=== PATIENT | male | born 1985 | race American Indian/Alaskan Native ===

== ENCOUNTER 2017-07-29 11:08 | Emergency (ER) | payer SELFPAY ==
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
[2017-07-29] MEDS ORDERED: CATAPRES PO ONE (13:26)
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
[2017-07-29 14:51] VITALS: BP 168/115
== END 2017-07-29 16:00 | disposition home or self-care (01) ==
LOC: ED 11:08
DX: S02.2XXA Fracture of nasal bones, initial encounter for closed fracture (principal); I10 Essential (primary) hypertension; F17.200 Nicotine dependence, unspecified, uncomplicated; Y04.8XXA Assault by other bodily force, initial encounter; Y93.89 Activity, other specified; Y92.89 Other specified places as the place of occurrence of the external cause; Y99.8 Other external cause status
CPT/HCPCS: 70450; 70486; 72125; 99283

== ENCOUNTER 2017-10-09 14:00 | Emergency (ER) | payer SELFPAY ==
[2017-10-09 14:09] VITALS: BP 200/125
[2017-10-09] MEDS ORDERED: CATAPRES ONE (14:12)
[2017-10-09] MEDS ORDERED: CATAPRES PO ONE (14:13)
== END 2017-10-09 17:40 | disposition left against medical advice (07) ==
LOC: ED 14:00
DX: I10 Essential (primary) hypertension (principal); Z53.21 Procedure and treatment not carried out due to patient leaving prior to being seen by health care provider

== ENCOUNTER 2017-11-26 07:20 | Emergency (ER) | payer SELFPAY ==
[2017-11-26] MEDS ORDERED: ASPIRIN PO ONE (07:37)
[2017-11-26] MEDS ORDERED: CATAPRES PO ONE (07:50)
[2017-11-26 08:06] LABS: Basophils # (Auto) 0.1 K/mm3 (0.0-0.1); Basophils % (Auto) 0.9 % (0.0-1.8); Eosinophils # (Auto) 0.5 K/mm3 (0.0-0.4); Eosinophils % (Auto) 6.2 % (0.0-4.3); Hematocrit 40.8 % (35.5-45.6); Hemoglobin 13.8 gm/dl (11.8-15.2); Lymphocytes # (Auto) 1.8 K/mm3 (1.2-5.4); Lymphocytes % (Auto) 24.7 % (13.4-35.0); Mean Corpuscular HGB Conc 34 % (32-34); Mean Corpuscular Hemoglobin 27 pg (28-32); Mean Corpuscular Volume 79 fl (84-94); Monocytes # (Auto) 0.6 K/mm3 (0.0-0.8); Monocytes % (Auto) 8.4 % (0.0-7.3); Platelet Count 261 K/mm3 (140-440); Red Blood Count 5.19 M/mm3 (3.65-5.03); Red Cell Distribution Width 13.8 % (13.2-15.2)
[2017-11-26 08:15] LABS: BUN/Creatinine Ratio 12; Blood Urea Nitrogen 15 mg/dL (9-20); Calcium 9.2 mg/dL (8.4-10.2); Hemolysis Index 13
--- NOTE | 2017-11-26 11:08 | Emergency Department Report ---
HPI - General Chief Complaint: High BP Time Seen by Provider: 11/26/17 10:54 - HPI HPI: 32-year-old [place]ian male presents to the emergency department with a complaint of elevated blood pressure and some dizziness. [place] said that he started feeling dizzy. When he arrived he was found to have a blood pressure of 200/132. He admits to a history of hypertension, diagnosed sometime in the past, but he has never been on blood pressure medications before. He does not have a primary care physician. No recent travel or sick contacts at home. He denies any headache, vision change, chest pain, shortness of breath or any neurological deficits. He smokes about 2 cigarettes per week, drinks 1-2 caffeinated sodas per day. He denies any illicit drug use. He has not taken anything for his symptoms. Presentation. ED Past Medical Hx - Past Medical History Hx Hypertension: Yes (never followed up p [place] [facility] [place] - Social History Smoking Status: Smoker, Current Status Unknown Substance Use Type: None - Medications Home Medications: Home Medications Medication Instructions Recorded Confirmed Last Taken Type Amlodipine Besylate [Norvasc] 5 mg PO DAILY #30 tablet 11/26/17 Unknown Rx ED Review of Systems ROS: Stated complaint: HTN Other details as noted in HPI Comment: All other systems reviewed and negative Constitutional: denies: chills, fever Eyes: denies: eye pain, eye discharge, vision change ENT: denies: ear pain, throat pain Respiratory: denies: cough, shortness of breath, wheezing Cardiovascular: denies: chest pain, palpitations Gastrointestinal: denies: abdominal pain, nausea, diarrhea Genitourinary: denies: urgency, dysuria Musculoskeletal: denies: back pain, joint swelling, arthralgia Skin: denies: rash, lesions Neurological: other (dizziness). denies: headache Physical Exam - Physical Exam Vital Signs: Vital Signs 11/26/17 07:25 Temperature 98.5 F Pulse Rate 92 H Blood Pressure 200/132 O2 Sat by Pulse 98 Oximetry Physical Exam: GENERAL: The patient is well-developed well-nourished. HENT: Normocephalic. Atraumatic. Patient has moist mucous membranes. EYES: Extraocular motions are intact. Pupils equal reactive to light bilaterally. Fatigable horizontal nystagmus. NECK: Supple. Trachea is midline. CHEST/LUNGS: Clear to auscultation. There is no respiratory distress noted. HEART/CARDIOVASCULAR: Regular. There is no tachycardia. There is no murmur. ABDOMEN: Abdomen is soft, nontender. Patient has normal bowel sounds. There is no abdominal distention. SKIN: Skin is warm and dry. NEURO: The patient is awake, alert, and oriented. The patient is cooperative. The patient has no focal neurologic deficits. The patient has normal speech. Cranial nerves II through XII grossly intact. MUSCULOSKELETAL: There is no tenderness or deformity. There is no limitation range of motion. There is no evidence of acute injury. ED Course Vital Signs 11/26/17 07:25 Temperature 98.5 F Pulse Rate 92 H Blood Pressure 200/132 O2 Sat by Pulse 98 Oximetry ED Medical Decision Making - Lab Data Result diagrams: 11/26/17 07:47 11/26/17 07:47 - EKG Data -: EKG Interpreted by Or EKG shows normal: sinus rhythm, axis, intervals, QRS complexes, ST-T waves ( early repolarization) Rate: normal - EKG Data When compared to previous EKG there are: previous EKG unavailable Interpretation: normal EKG (with early repolarization) - Radiology Data Radiology results: report reviewed CT of the head does not show any acute intracranial process including no ischemia, shift, mass, bleeding or skull fracture. - Medical Decision Making Patient presents with some nonspecific dizziness and/or lightheadedness along with very elevated blood pressure. He came in with a systolic of about 200. He was given 0.2 mg of Catapres and his blood pressure came down to a much more reasonable level. Labs were mostly unremarkable. CT of the head without contrast did not show any bleed, shift, mass, ischemia or any other acute process. The patient was reevaluated multiple times for multiple hours and says he is feeling improved. He was seen ambulatory in the emergency department and appeared stable while doing so. He appears safe for discharge home at this time. We discussed some dietary and lifestyle changes to make to help with his blood pressure. He'll be started on 5 mg of Norvasc daily and will keep a blood pressure log. He was given multiple referrals for primary care clinics in the area. He was encouraged to return to the emergency Department with any worsening of his symptoms or any acute distress. He understands and agrees to the plan. - Differential Diagnosis hypertensive urgency, CVA, TIA, Brain bleed, dysrythmia Critical Care Time: No Critical care attestation.: If time is entered above; I have spent that time in minutes in the direct care of this critically ill patient, excluding procedure time. ED Disposition Clinical Impression: Dizziness Hypertension Qualifiers: Hypertension type: essential hypertension Qualified Code(s): I10 - Essential ( primary) hypertension Disposition: DC- TO HOME OR SELFCARE Is pt being admited?: No Condition: Stable Instructions: Hypertension (ED), Lightheadedness (ED), Dizziness (ED) Additional Instructions: Please follow up with a primary care physician or clinic in the next few days. Please quit all tobacco use. Try and stay away from foods that are high in salt caffeinated products to help with her blood pressure. Keep a blood pressure log. I have started you on a blood pressure medication called Norvasc/ amlodipine to be taken once daily. Return to the emergency Department with any worsening of your symptoms or any acute distress. Prescriptions: Amlodipine Besylate [Norvasc] 5 mg PO DAILY #30 tablet Referrals: [facility] [Outside] - 3-5 Days [facility] [Outside] - 3-5 Days [facility] [Outside] - 3-5 Days [facility] [Outside] - 3-5 Days Forms: Work/School Release Form(ED) Time of Disposition: 12:41
--- NOTE | 2017-11-26 11:59 | Cat Scan Report ---
CT HEAD WITHOUT CONTRAST: 11/26/17 07:20:00 CLINICAL: Dizziness. TECHNIQUE: 2.5-mm noncontrast scans. COMPARISON:07/29/17 FINDINGS: The ventricles and sulci are normal for age. No abnormal density. No mass or mass effect. No hemorrhage, edema or extra-axial collection. The sinuses and mastoids are clear. Normal orbits and soft tissues. The calvarium and skull base are intact. IMPRESSION: Normal head CT.
[2017-11-26 14:09] VITALS: BP 130/83
== END 2017-11-26 13:45 | disposition home or self-care (01) ==
LOC: ED 07:20
DX: I10 Essential (primary) hypertension (principal); R42 Dizziness and giddiness; F17.200 Nicotine dependence, unspecified, uncomplicated
CPT/HCPCS: 36415; 70450; 80048; 82962; 84443; 84484; 85025; 93005; 93010; 99284

== ENCOUNTER 2018-02-26 18:01 | Emergency (ER) | payer SELFPAY ==
[2018-02-26] MEDS ORDERED: CATAPRES ONE (19:40)
[2018-02-26] MEDS ORDERED: CATAPRES PO ONE ×2 (19:41→20:17)
[2018-02-26 20:50] LABS: Hematocrit 41.8 % (35.5-45.6); Hemoglobin 14.1 gm/dl (11.8-15.2); Mean Corpuscular HGB Conc 34 % (32-34); Mean Corpuscular Hemoglobin 27 pg (28-32); Mean Corpuscular Volume 79 fl (84-94); Platelet Count 223 K/mm3 (140-440); Red Blood Count 5.28 M/mm3 (3.65-5.03); Red Cell Distribution Width 15.1 % (13.2-15.2)
[2018-02-26 20:53] LABS: BUN/Creatinine Ratio 9; Blood Urea Nitrogen 12 mg/dL (9-20); Calcium 9.7 mg/dL (8.4-10.2); Hemolysis Index 10
[2018-02-26 21:36] LABS: Ovalocytes Few; Total Cells Counted 100
[2018-02-26 21:37] LABS: Platelet Estimate Consistent w Auto
--- NOTE | 2018-02-26 22:20 | Emergency Department Report ---
ED Eye Problem HPI - General Chief complaint: Eye Problems Stated complaint: RED EYES Time Seen by Provider: 02/26/18 20:11 Source: patient, old records reviewed (previous ER visits for both uncontrolled pressure medication noncompliance. Labs from November showed normal renal function ) Mode of arrival: Ambulatory Limitations: No Limitations - History of Present Illness Initial comments: 32-year-old male with a past medical history of hypertension presents to the hospital with complaints of right eye redness 1 week and elevated BP noted in triage. Patient thinks that he had food poisoning last week and has several days of nausea, vomiting, and diarrhea that have since resolved. After an episode of vomiting he noticed redness to the right eye that steadily increased and stabilized. Patient complains of mild blurred vision but no eye pain or photophobia. Patient presents with elevated BP in triage and has not taken his blood pressure measured in several days. He takes Norvasc 5 mg once a day but states his blood pressure remains uncontrolled on this regimen he has not followed up with a primary care doctor. He complains of mild left-sided headache. No current nausea, vomiting, focal weakness or numbness. - Related Data Previous Rx's Medication Instructions Recorded Last Taken Type Amlodipine Besylate [Norvasc] 5 mg PO DAILY #30 tablet 11/26/17 Unknown Rx amLODIPine [Norvasc] 10 mg PO DAILY #30 tab 02/26/18 Unknown Rx Allergies Allergy/AdvReac Type Severity Reaction Status Date / Time No Known Allergies Allergy Verified 02/26/18 18:06 ED Review of Systems ROS: Stated complaint: RED EYES Other details as noted in HPI Comment: All other systems reviewed and negative ED Past Medical Hx - Past Medical History Hx Hypertension: Yes - Surgical History Past Surgical History?: No - Social History Smoking Status: Never Smoker - Medications Home Medications: Home Medications Medication Instructions Recorded Confirmed Last Taken Type Amlodipine Besylate [Norvasc] 5 mg PO DAILY #30 tablet 11/26/17 Unknown Rx amLODIPine [Norvasc] 10 mg PO DAILY #30 tab 02/26/18 Unknown Rx ED Physical Exam - General Limitations: No Limitations - Other Other exam information: General: No limitations, patient is alert in no acute distress Head exam: Atraumatic, normocephalic Eyes exam: Normal appearance, pupils equal reactive to light, extraocular movements intact. Right temporal side subconjunctival hemorrhage sparing the limbus. No photophobia. Visual acuity 20/20 left, 20/20 right, 20/20 bilaterally ENT: Moist mucous membrane, normal oropharynx Neck exam: Normal inspection, full range of motion, no meningismus nontender Respiratory exam: Clear to auscultation bilateral, no wheezes, rales, crackles Cardiovascular: Normal rate and rhythm, normal heart sounds Abdomen: Soft, nondistended, and nontender, with normal bowel sounds, no rebound, or guarding Extremity: Full range of motion normal inspection no deformity Back: Normal Inspection, full range of motion, no tenderness Neurologic: Alert, oriented x3, cranial nerves intact, no motor or sensory deficit Psychiatric: normal affect, normal mood Skin: Warm, dry, intact ED Course Vital Signs 02/26/18 02/26/18 02/26/18 18:06 19:31 19:38 Temperature 98.9 F Pulse Rate 89 63 61 Respiratory 18 18 17 Rate Blood Pressure 203/134 208/127 Blood Pressure 208/127 [Right] O2 Sat by Pulse 97 98 99 Oximetry 02/26/18 02/26/18 02/26/18 19:44 19:45 20:00 Temperature Pulse Rate 61 70 58 L Respiratory 16 16 Rate Blood Pressure 208/127 208/139 204/121 Blood Pressure [Right] O2 Sat by Pulse 99 97 Oximetry 02/26/18 02/26/18 02/26/18 20:15 20:51 21:42 Temperature Pulse Rate 64 64 58 L Respiratory 14 11 L Rate Blood Pressure 208/139 208/139 Blood Pressure 176/116 [Right] O2 Sat by Pulse 98 98 Oximetry - Reevaluation(s) Reevaluation #1: 02/26/18 22:19 During ED stay patient's decline is 0.2 mg for blood pressure Reevaluation #2: 02/26/18 22:32 BP is trending downward after receiving clonidine 0.2 mg. Additional Norvasc 5 mg provided. This patient is asymptomatic with reduction in blood pressure he will be discharged home ED Medical Decision Making - Lab Data Result diagrams: 02/26/18 20:17 02/26/18 20:17 Lab Results 02/26/18 02/26/18 Range/Units 20:17 20:17 WBC 7.3 (4.5-11.0) K/mm3 RBC 5.28 H (3.65-5.03) M/mm3 Hgb 14.1 (11.8-15.2) gm/dl Hct 41.8 (35.5-45.6) % MCV 79 L (84-94) fl MCH 27 L (28-32) pg MCHC 34 (32-34) % RDW 15.1 (13.2-15.2) % Plt Count 223 (140-440) K/mm3 Eos % (Auto) [employer] Add Manual Diff Complete Total Counted 100 Seg Neuts % (Manual) 48.0 (40.0-70.0) % Band Neutrophils % 0 % Lymphocytes % (Manual) 24.0 (13.4-35.0) % Reactive Lymphs % (Man) 0 % Monocytes % (Manual) 6.0 (0.0-7.3) % Eosinophils % (Manual) 21.0 H (0.0-4.3) % Basophils % (Manual) 1.0 (0.0-1.8) % Metamyelocytes % 0 % Myelocytes % 0 % Promyelocytes % 0 % Blast Cells % 0 % Nucleated RBC % Not Reportable Seg Neutrophils # Man 3.5 (1.8-7.7) K/mm3 Band Neutrophils # 0.0 K/mm3 Lymphocytes # (Manual) 1.8 (1.2-5.4) K/mm3 Abs React Lymphs (Man) 0.0 K/mm3 Monocytes # (Manual) 0.4 (0.0-0.8) K/mm3 Eosinophils # (Manual) 1.5 H (0.0-0.4) K/mm3 Basophils # (Manual) 0.1 (0.0-0.1) K/mm3 Metamyelocytes # 0.0 K/mm3 Myelocytes # 0.0 K/mm3 Promyelocytes # 0.0 K/mm3 Blast Cells # 0.0 K/mm3 WBC Morphology Not Reportable Hypersegmented Neuts Not Reportable Hyposegmented Neuts Not Reportable Hypogranular Neuts Not Reportable Smudge Cells Not Reportable Toxic Granulation Not Reportable Toxic Vacuolation Not Reportable Dohle Bodies Not Reportable Pelger-Huet Anomaly Not Reportable Mely Rods Not Reportable Platelet Estimate Consistent w auto Clumped Platelets Not Reportable Plt Clumps, EDTA Not Reportable Large Platelets Not Reportable Giant Platelets Not Reportable Platelet Satelliting Not Reportable Plt Morphology Comment Not Reportable RBC Morphology Not Reportable Dimorphic RBCs Not Reportable Polychromasia Not Reportable Hypochromasia Not Reportable Poikilocytosis Not Reportable Anisocytosis Not Reportable Microcytosis Not Reportable Macrocytosis Not Reportable Spherocytes Not Reportable Pappenheimer Bodies Not Reportable Sickle Cells Not Reportable Target Cells Not Reportable Tear Drop Cells Not Reportable Ovalocytes Few Helmet Cells Not Reportable Evans-Gervais Bodies Not Reportable [place] Rings Not Reportable [place] Cells Not Reportable Bite Cells Not Reportable Crenated Cell Not Reportable Elliptocytes Not Reportable Acanthocytes (Spur) Not Reportable Rouleaux Not Reportable Hemoglobin C Crystals Not Reportable Schistocytes Not Reportable Malaria parasites Not Reportable Hoang Bodies Not Reportable Hem Pathologist Commnt No Sodium 139 (137-145) mmol/L Potassium 3.8 (3.6-5.0) mmol/L Chloride 99.6 (98-107) mmol/L Carbon Dioxide 29 (22-30) mmol/L Anion Gap 14 mmol/L BUN 12 (9-20) mg/dL Creatinine 1.3 (0.8-1.5) mg/dL Estimated GFR > 60 ml/min BUN/Creatinine Ratio 9 % Glucose 90 (75-100) mg/dL Calcium 9.7 (8.4-10.2) mg/dL - Medical Decision Making Uncontrolled hypertension secondary to medication noncompliance Decreasing with clonidine Norvasc 5 mg given prior to discharge and Norvasc 10 mg will be continued for home I stressed the importance of follow-up for blood pressure medication adjustment for better blood pressure control. Stressed the risk of stroke, kidney function , heart attack of long-standing uncontrolled hypertension. Patient is asymptomatic at this time with normal renal function Right eye redness secondary to subconjunctival hemorrhage which will resolve spontaneously. Visual acuity normal. - Differential Diagnosis hypertensive emergency/urgency hemorrhage, conjunctivitis, abrasion Critical Care Time: No Critical care attestation.: If time is entered above; I have spent that time in minutes in the direct care of this critically ill patient, excluding procedure time. ED Disposition Clinical Impression: Uncontrolled hypertension, Subconjunctival hemorrhage of right eye, Noncompliance with medication regimen Disposition: TO HOME OR SELFCARE Is pt being admited?: No Does the pt Need Aspirin: No Condition: Stable Instructions: Hypertension (ED), Subconjunctival Hemorrhage (ED) Additional Instructions: Taken medication as prescribed. Continue to monitor blood pressure home. Is very important that you follow-up with a primary care doctor for adjustment of blood pressure medication as discussed. Prescriptions: amLODIPine [Norvasc] 10 mg PO DAILY #30 tab Referrals: ELIE MARTINEZ MD [Staff Physician] - 3-5 Days [facility] [Provider Group] - 3-5 Days Time of Disposition: 22:38
[2018-02-26] MEDS ORDERED: NORVASC ONE (22:29)
[2018-02-26] MEDS ORDERED: NORVASC PO ONE (22:30)
[2018-02-26 22:34] VITALS: BP 171/117
== END 2018-02-26 22:59 | disposition home or self-care (01) ==
LOC: ED 18:01
DX: I10 Essential (primary) hypertension (principal); H11.31 Conjunctival hemorrhage, right eye; Z91.14 Patient's other noncompliance with medication regimen
CPT/HCPCS: 36415; 80048; 85007; 85025; 93005; 93010; 99283